=== PATIENT | male | born 1975 | race Two or more races ===

== ENCOUNTER 2023-12-05 08:57 | Outpatient (RCR) | payer OTHER, SELFPAY | END 2024-02-20 10:34 | disposition home or self-care (01) | LOC: HO.WCC 08:57 | PROVIDERS: PCP Internal Medicine; Visit Provider Physician Assistant | DX: E11.621 Type 2 diabetes mellitus with foot ulcer (principal); L97.512 Non-pressure chronic ulcer of other part of right foot with fat layer exposed; E11.40 Type 2 diabetes mellitus with diabetic neuropathy, unspecified; E11.69 Type 2 diabetes mellitus with other specified complication; M86.9 Osteomyelitis, unspecified; Z98.84 Bariatric surgery status; Z87.891 Personal history of nicotine dependence | CPT/HCPCS: 11042; 11044; 87070; 87077; 87186; 87205; 99212 ==

== ENCOUNTER 2023-12-26 14:14 | Outpatient (REF) | payer OTHER, SELFPAY ==
--- NOTE | ~2023-12-26 | MR_ITS ---
EXAMINATION: MR FOOT WITHOUT AND WITH CONTRAST, RIGHT CLINICAL INFORMATION: 3rd toe nonhealing wound. Evaluate for osteomyelitis COMPARISON: None available. TECHNIQUE: MRI of the right foot was performed before and after the intravenous administration of 10 mL Gadavist on a high-field scanner. FINDINGS: There is a soft tissue defect at the distal aspect of the 3rd toe with underlying edema and enhancement which extends throughout the 3rd toe compatible with cellulitis. No abscess. There is marrow edema/enhancement and loss of T1 fatty marrow signal of the 3rd distal phalanx and middle phalanx compatible with osteomyelitis. There is also enhancement at the distal aspect of the proximal phalanx although T1 fatty marrow signal is preserved. This may be reactive, or represent mild osteomyelitis as well. No metatarsal stress reaction or fracture. Edema and moderate fatty atrophy of the intrinsic muscles of the foot, not uncommon in diabetic patients. Degenerative changes of the midfoot with dorsal osteophytes. MR/MR foot RT wo/w con IMPRESSION: Soft tissue defect at the distal aspect of the 3rd toe with underlying cellulitis and osteomyelitis of the 3rd distal and middle phalanges, possibly the distal aspect of the proximal phalanx as well. No abscess.
[2023-12-26] MEDS: gadobutroL 10 ML VIAL IVPUSH (16:09)
== END 2023-12-26 14:15 | disposition home or self-care (01) ==
LOC: HO.MRI 14:14
PROVIDERS: PCP Internal Medicine; Visit Provider Physician Assistant
DX: L97.514 Non-pressure chronic ulcer of other part of right foot with necrosis of bone (principal); E11.621 Type 2 diabetes mellitus with foot ulcer
CPT/HCPCS: 73720; A9585

== ENCOUNTER 2024-01-07 15:33 | Outpatient (AMB) | payer OTHER, SELFPAY ==
--- NOTE | 2024-01-07 15:19 | MHC.OFFVIS ---
Vital Signs 01/07/24 15:24 Weight 351 lb Pulse 79 Pulse Source Pulse Oximeter Temp 99.1 F Temp Source Oral Pulse Oximetry (%) 99 Oxygen Delivery Method Room Air Intake Visit Reasons: reff wound care/osteo Allergies No Known Allergies Allergy (Verified 01/07/24 15:25) HPI HPI reff wound care/osteo: Details: He has right third toe wound. He has OM distal right third toe with DM. MRI shows osseous destruction and OM of distal phalanx. Middle phalanx was involved but not destroyed, His glycohgb is 7.[address] Limon. He had foot injury 2 months ago after stepping on board. COUNTS INCLUDE 234 BEDS AT THE [facility] Medical History Diabetes mellitus Review of Systems Const All systems reviewed & are unremarkable except as noted in HPI and below Physical Exam Vital Signs: Last Vital Signs Temp 99.1 F 01/07/24 15:24 Pulse 79 01/07/24 15:24 Pulse Ox 99 01/07/24 15:24 Oxygen Delivery Method Room Air 01/07/24 15:24 Const General: cooperative Orientation/consciousness: patient oriented x3 HEENT Head: Yes normal to inspection Face and sinus: Yes normal facial exam Mouth: Normal oral and palatal mucosa present Teeth and gingiva: dentition normal Eyes General: appearance normal, both eyes and all related structures Pupils: Equal, round and reactive pupils present Resp Effort & Inspection: normal respiratory effort Cardio Rate: regular rate Rhythm: regular rhythm GI Palpation (GI): Soft to palpation and nontender General: Yes no CVA tenderness Back/Spine/Pelvis Back: no CVA tenderness Skin General skin exam: no rashes or lesions noted Neuro General: patient oriented x3 and moves all extremities Cranial nerves: Yes Equal, round and reactive pupils present Extrem Other: third toe wound General: Yes normal to inspection Psych Appearance: grossly normal Assessment & Plan Assessment & Plan (1) Diabetes mellitus: Comment: He has wound and citrobacter freundii culture sensitive to Levaquin Code(s): E11.9 - Type 2 diabetes mellitus without complications Category: Medical Plan: Po Levaquin for 14 days for local infection He may have benefit from debridement or removal OM area versus six weeks IV antibiotics which is not curative. He will see Podiatry and let us know and return if fdc antibiotics versus bone removal needed. Medications: New levofloxacin 500 mg PO Q24H 14 tabs 0RF 14 days Coding Level of Care Code New Pt Level 4 (24327) Diagnoses Diabetes mellitus E11.9
[2024-01-07 15:24] VITALS: PULSE 79; TEMP 37.3; O2SAT 99
== END 2024-01-07 15:47 | disposition home or self-care (01) ==
LOC: HO.HID 15:33
PROVIDERS: PCP Internal Medicine; Visit Provider Internal Medicine
DX: E11.9 Type 2 diabetes mellitus without complications (principal)
CPT/HCPCS: 99204

== ENCOUNTER → 2024-01-07 15:33 | Outpatient (BNVA) | payer OTHER, SELFPAY | PROVIDERS: PCP Internal Medicine; Visit Provider Internal Medicine ==

== ENCOUNTER 2024-01-13 12:49 | Outpatient (REF) | payer OTHER, SELFPAY ==
--- NOTE | ~2024-01-13 | US_ITS ---
EXAMINATION: Noninvasive assessment of the bilateral lower extremities with ARTERIAL DUPLEX and ANKLE BRACHIAL INDICES (ABIs). CLINICAL INFORMATION: Vascular disease with right lower extremity nonhealing wound TECHNIQUE: Duplex Doppler techniques with waveform analysis and measurement of velocities in the right common femoral, profunda femoris, superficial femoral, popliteal and tibial arteries were performed. Additionally, ankle pulse volume recordings, ankle pressure measurements and ankle brachial indices were obtained of the lower extremity arterial system bilaterally. The study was performed only at rest. COMPARISON: None FINDINGS: DIRECT DUPLEX DOPPLER FINDINGS: RIGHT LEG: Common femoral artery: 60.9 cm/s, phasicity: Triphasic Profunda femoris artery: 59.4 cm/s, phasicity: Triphasic Superficial femoral artery (proximal): 60.5 cm/s, phasicity: Triphasic Superficial femoral artery (mid): 72.4 cm/s, phasicity: Triphasic Superficial femoral artery (distal): 83.6 cm/s, phasicity: Triphasic Popliteal artery: 82.2 cm/s, phasicity: Triphasic Posterior tibial artery: 112.4 cm/s, phasicity: Triphasic Peroneal artery: 62.2 cm/s, phasicity: Triphasic Anterior tibial artery: 43.5 cm/s, phasicity: Triphasic ANKLE-BRACHIAL INDEX: Right: 1.25? Left: 1.25 ANKLE PRESSURES: Right: PT 143, DP 158 Left: PT?157, DP?144 ANKLE PVR WAVEFORMS: Right: Normal Left: Normal US/US arterial duplex LE RT IMPRESSION: Normal ankle brachial indices and PVR waveforms. Normal duplex arterial ultrasound evaluation of the right lower extremity SLOANE Reference: - >1.4 = calcified vessels - 0.9 - 1.4 = normal - no significant arterial disease - 0.7 - 0.89 = mild peripheral arterial disease - 0.51 - 0.69 = moderate peripheral arterial disease - ? 0.50 = severe peripheral arterial disease - < .30 = critical arterial disease
--- NOTE | ~2024-01-13 | US_ITS ---
EXAMINATION: Noninvasive assessment of the bilateral lower extremities with ARTERIAL DUPLEX and ANKLE BRACHIAL INDICES (ABIs). CLINICAL INFORMATION: Vascular disease with right lower extremity nonhealing wound TECHNIQUE: Duplex Doppler techniques with waveform analysis and measurement of velocities in the right common femoral, profunda femoris, superficial femoral, popliteal and tibial arteries were performed. Additionally, ankle pulse volume recordings, ankle pressure measurements and ankle brachial indices were obtained of the lower extremity arterial system bilaterally. The study was performed only at rest. COMPARISON: None FINDINGS: DIRECT DUPLEX DOPPLER FINDINGS: RIGHT LEG: Common femoral artery: 60.9 cm/s, phasicity: Triphasic Profunda femoris artery: 59.4 cm/s, phasicity: Triphasic Superficial femoral artery (proximal): 60.5 cm/s, phasicity: Triphasic Superficial femoral artery (mid): 72.4 cm/s, phasicity: Triphasic Superficial femoral artery (distal): 83.6 cm/s, phasicity: Triphasic Popliteal artery: 82.2 cm/s, phasicity: Triphasic Posterior tibial artery: 112.4 cm/s, phasicity: Triphasic Peroneal artery: 62.2 cm/s, phasicity: Triphasic Anterior tibial artery: 43.5 cm/s, phasicity: Triphasic ANKLE-BRACHIAL INDEX: Right: 1.25? Left: 1.25 ANKLE PRESSURES: Right: PT 143, DP 158 Left: PT?157, DP?144 ANKLE PVR WAVEFORMS: Right: Normal Left: Normal US/US SLOANE complete IMPRESSION: Normal ankle brachial indices and PVR waveforms. Normal duplex arterial ultrasound evaluation of the right lower extremity SLOANE Reference: - >1.4 = calcified vessels - 0.9 - 1.4 = normal - no significant arterial disease - 0.7 - 0.89 = mild peripheral arterial disease - 0.51 - 0.69 = moderate peripheral arterial disease - ? 0.50 = severe peripheral arterial disease - < .30 = critical arterial disease
== END 2024-01-13 12:50 | disposition home or self-care (01) ==
LOC: HO.US 12:49
PROVIDERS: PCP Internal Medicine; Visit Provider Physician Assistant
DX: L97.514 Non-pressure chronic ulcer of other part of right foot with necrosis of bone (principal)
CPT/HCPCS: 93923; 93926